=== PATIENT | male | born 1985 | race Caucasian/White ===

== ENCOUNTER 2021-06-10 06:48 | Day surgery (SDC) | payer BC ==
[~2021-06-10] VITALS: Ht 175.3 cm; Wt 142.9 kg
[~2021-06-10 06:48] MED LIST: ALL DAY10 MG PO; CELEXA40 M1 PO; FISH OIL1000 MG PO; LISINOPRIL20 MG PO; LORAZEPAM0.5 MG PO; MIRALAX17 GM PO; MONTELUKAST SOD10 MG PO; PROBIOTIC MULTI1 TAB PO; [UNRECOGNIZED DRUG - CODE] PO
[2021-06-10] MEDS ORDERED: [UNRECOGNIZED DRUG - CODE] PO (07:19)
[2021-06-10 09:49] VITALS: BP 123/72
== END 2021-06-10 10:11 | disposition home or self-care (01) | DRG 395 ==
LOC: ENDO 06:48 → ORM 08:00 → ENDO 10:11
PROVIDERS: ATTEND Surgery
PROC: 069Y3ZZ Drainage of Lower Vein, Percutaneous Approach (ICD-10-PCS; principal; 2021-06-10)
PROC: 0DBL8ZX Excision of Transverse Colon, Via Natural or Artificial Opening Endoscopic, Diagnostic (ICD-10-PCS; 2021-06-10)
DX: K64.5 Perianal venous thrombosis (principal); Z12.11 Encounter for screening for malignant neoplasm of colon; K63.5 Polyp of colon; I10 Essential (primary) hypertension; Z80.0 Family history of malignant neoplasm of digestive organs
CPT/HCPCS: C9290

== ENCOUNTER 2021-07-13 07:25 | Emergency (ER) | payer BC ==
[~2021-07-13] VITALS: Ht 175.3 cm; Wt 139.0 kg
[~2021-07-13 07:25] MED LIST changes: +[UNRECOGNIZED DRUG - CODE] PO
[2021-07-13 07:50] LABS: HEMATOCRIT 46.4 % (39.0-50.0); HEMOGLOBIN 15.3 g/dl (14.0-18.0); IMMATURE GRANULOCYTES 0.2 % (0.0-5.0); MEAN CELL VOLUME 88.2 fL CALC (80.0-100.0); MEAN CORPUSCULAR HGB 29.1 pG CALC (26.0-32.0); NEUT# 3.67 thou/uL (1.82-7.42); RED BLOOD COUNT 5.26 mill/uL (4.70-6.10); RED CELL DISTRI WIDTH 12.8 % (11.5-15.5)
[2021-07-13 08:00] LABS: URINE BILIRUBIN - DIPSTICK NEGATIVE (NEGATIVE); URINE BLOOD DIPSTICK LARGE (NEGATIVE); URINE GLUCOSE - DIPSTICK NEGATIVE (NEGATIVE); URINE KETONE NEGATIVE (NEGATIVE); URINE LEUK ESTERASE NEGATIVE (NEGATIVE); URINE PROTEIN - DIPSTICK 30 mg/dL (NEG-TRACE); URINE UROBILINOGEN - DIPSTICK 0.2 E.U./dL (0.2)
[2021-07-13 08:04] LABS: URINE COLOR AMBER; URINE NITRITE - DIPSTICK NEGATIVE (Negative)
[2021-07-13 08:05] LABS: ALBUMIN 4.7 g/dL (3.2-5.0); ALKALINE PHOSPHATASE 78 u/l (38-126); ANION GAP 14 (6-22 (CALC)); BILIRUBIN, TOTAL 0.6 mg/dL (0.0-1.4); BUN 12 mg/dL (9-20); BUN/CREATININE RATIO 15 (12-20 (CALC)); CARBON DIOXIDE 27 mmol/l (22-30); CHLORIDE 102 mmol/l (95-108); CREATININE 0.8 mg/dL (0.7-1.3); GFR > 60 ML/MIN (>=60 (CALC)); GFR FOR AFR.AMER. > 60 ML/MIN (>=60 (CALC)); LIPASE 90 u/l (23-300); SGOT/AST 43 u/l (17-59); SODIUM 139 mmol/l (137-146); TOTAL PROTEIN 7.8 g/dL (6.3-8.2); URINE RBC >100 RBC/hpf (0-5); URINE WBC 0-2 WBC/hpf (0-5)
[2021-07-13] MEDS ORDERED: TAMSULOSIN0.4 MG PO (09:05)
[2021-07-13] MEDS ORDERED: CEPHALEXIN500 M1 PO (09:05)
[2021-07-13 09:20] VITALS: BP 138/87
== END 2021-07-13 09:21 | disposition home or self-care (01) | DRG 696 ==
LOC: ED 07:25
PROVIDERS: Family Medicine
DX: R31.9 Hematuria, unspecified (principal); R10.31 Right lower quadrant pain; E66.9 Obesity, unspecified; I10 Essential (primary) hypertension; F32.A Depression, unspecified; F41.9 Anxiety disorder, unspecified; E78.5 Hyperlipidemia, unspecified; K76.0 Fatty (change of) liver, not elsewhere classified; Z87.442 Personal history of urinary calculi
CPT/HCPCS: Q9967

== ENCOUNTER 2022-01-02 20:13 | Inpatient (IN) | payer BC ==
[2022-01-02] VITALS (7 sets, daily range): BP systolic 80–131; BP diastolic 45–85
[~2022-01-02] VITALS: Ht 175.3 cm; Wt 125.0 kg
[~2022-01-02 20:13] MED LIST changes: +CEPHALEXIN500 M1 PO; +TAMSULOSIN0.4 MG PO
--- NOTE | 2022-01-02 20:40 | NUR ---
PT TRIAGED IN ROOM. STRETCHER IN LOWEST POSITION. CALL LIGHT WITHIN REACH.
[2022-01-02 21:26] LABS: HEMATOCRIT 41.5 % (39.0-50.0); HEMOGLOBIN 13.6 g/dl (14.0-18.0); IMMATURE GRANULOCYTES 0.2 % (0.0-5.0); MEAN CELL VOLUME 89.6 fL CALC (80.0-100.0); MEAN CORPUSCULAR HGB 29.4 pG CALC (26.0-32.0); MEAN CORPUSCULAR HGB CONC 32.8 g/dL CAL (32.0-36.0); NEUT# 7.75 thou/uL (1.82-7.42); RED BLOOD COUNT 4.63 mill/uL (4.70-6.10)
[2022-01-02 21:27] LABS: URINE BILIRUBIN - DIPSTICK NEGATIVE (NEGATIVE); URINE BLOOD DIPSTICK LARGE (NEGATIVE); URINE COLOR YELLOW; URINE GLUCOSE - DIPSTICK NEGATIVE (NEGATIVE); URINE KETONE NEGATIVE (NEGATIVE); URINE LEUK ESTERASE NEGATIVE (NEGATIVE); URINE PROTEIN - DIPSTICK NEGATIVE (NEG-TRACE); URINE UROBILINOGEN - DIPSTICK 0.2 E.U./dL (0.2)
[2022-01-02 21:29] LABS: URINE NITRITE - DIPSTICK NEGATIVE (Negative)
[2022-01-02 21:38] LABS: URINE WBC 0-2 WBC/hpf (0-5)
[2022-01-02 21:43] LABS: ALKALINE PHOSPHATASE 75 u/l (38-126); ANION GAP 13 (6-22 (CALC)); BUN 11 mg/dL (9-20); BUN/CREATININE RATIO 10 (12-20 (CALC)); CARBON DIOXIDE 24 mmol/l (22-30); CHLORIDE 108 mmol/l (95-108); CREATININE 1.1 mg/dL (0.7-1.3); GFR > 60 ML/MIN (>=60 (CALC)); GFR FOR AFR.AMER. > 60 ML/MIN (>=60 (CALC)); POTASSIUM 4.5 mmol/l (3.5-5.1); SGOT/AST 19 u/l (17-59); SODIUM 141 mmol/l (137-146); TOTAL PROTEIN 6.9 g/dL (6.3-8.2)
[2022-01-02 21:46] LABS: BILIRUBIN, TOTAL 0.3 mg/dL (0.0-1.4)
--- NOTE | 2022-01-02 21:59 | NUR ---
PT RESTING ON STRETCHER IN ROOM
[2022-01-03] VITALS (13 sets, daily range): BP systolic 90–149; BP diastolic 64–87
--- NOTE | 2022-01-03 00:33 | NUR ---
RN CALLED REPORT TO MED SURG FLOOR. RN UNAVAILABLE. WILL CALL BACK FOR REPORT
--- NOTE | 2022-01-03 02:00 | NUR ---
PT TRANSPORTED TO [facility] FLOOR VIA WHEELCHAIR.
--- NOTE | 2022-01-03 02:06 | NUR ---
PT ARRIVED ON FLOOR VIA WHELLCHAIR. PT ALERT AND ORIENTED. NO COMPALINTS OF PAIN OR DISCOMFORT
--- NOTE | 2022-01-03 02:07 | NUR ---
Patient uses CPAP at night. Received order from Dr Muñiz for CPAP. Pt placed on continous pulse ox. RT at bedside.
--- NOTE | 2022-01-03 06:32 | NUR ---
PT REQUESTED TO HAVE CPAP OFF AT THIS TIME, AND THAT HE WAS AWAKE. CPAP REMOVED AND PLACED ON STANDBY.
--- NOTE | 2022-01-03 07:00 | NUR ---
RECEIVE REPORT FROM AMRIT SHELDON.
[2022-01-03] MEDS ORDERED: CVS IBUPROFEN200 M1 PO (12:22)
[2022-01-03] MEDS ORDERED: MULTIVITAMIN1 TA1 PO (12:24)
[2022-01-03] MEDS ORDERED: BUPROPION HCL100 M2 PO (12:25)
--- NOTE | 2022-01-03 12:25 | NUR ---
PATIENT RESTING IN BED. STABLE AT THIS TIME.
[2022-01-03] MEDS ORDERED: VITAMIN D33000 UNIT PO (12:27)
--- NOTE | 2022-01-03 19:17 | NUR ---
pt arrived back from OR.
--- NOTE | 2022-01-03 19:35 | NUR ---
Pt resting in bed. Telemetry placed back on. Vitals taken. Pt denies any pain at this time. Call bed within reach, bed alarm on and bed in low position.
[2022-01-04 00:12] VITALS: BP 136/75
[2022-01-04 04:14] VITALS: BP 120/79
[2022-01-04 07:32] VITALS: BP 112/67
--- NOTE | 2022-01-04 10:22 | NUR ---
PT AWAKE, ALERT, ORIENTED X 3. PT WITH LITHOTRIPSY YESTERDAY, HAS BEEN ABLE TO VOID NORMALLY, STATES BLOOD TINGED EXPECTED. ASSESSMENT NEGATIVE OTHERWISE. PT DISCHARGED TO HOME, VERBALIZES UNDERSTANDING OF DC INSTRUCTIONS, TAKEN BY WHEELCHAIR TO LOBBY.
== END 2022-01-04 10:00 | disposition home or self-care (01) | DRG 660 ==
LOC: ED 20:13 → ED-I 21:01 → ED 21:01 → ED-I 22:17 → ED 22:37 → MS2 22:38
PROVIDERS: Internal Medicine; ADMIT Internal Medicine; ATTEND Internal Medicine
PROC: 0TC78ZZ Extirpation of Matter from Left Ureter, Via Natural or Artificial Opening Endoscopic (ICD-10-PCS; principal; 2022-01-03)
PROC: 0T778DZ Dilation of Left Ureter with Intraluminal Device, Via Natural or Artificial Opening Endoscopic (ICD-10-PCS; 2022-01-03)
PROC: BT1F1ZZ Fluoroscopy of Left Kidney, Ureter and Bladder using Low Osmolar Contrast (ICD-10-PCS; 2022-01-03)
DX: N13.2 Hydronephrosis with renal and ureteral calculous obstruction (principal); Z68.41 Body mass index [BMI] 40.0-44.9, adult; I10 Essential (primary) hypertension; E78.5 Hyperlipidemia, unspecified; E66.9 Obesity, unspecified; F41.9 Anxiety disorder, unspecified; F32.A Depression, unspecified; Z87.442 Personal history of urinary calculi; Z20.822 Contact with and (suspected) exposure to COVID-19; G47.33 Obstructive sleep apnea (adult) (pediatric)
CPT/HCPCS: J0131; J1100; Q9967